=== PATIENT | female | born 1955 | race Caucasian/White ===

== ENCOUNTER 2017-10-16 14:38 | Emergency (ER) | payer OTHER ==
[~2017-10-16] VITALS: Ht 160 cm; Wt 142.4 kg
--- NOTE | 2017-10-16 15:12 | ED GENERAL ADULT ---
History of Present Illness General Chief Complaint: Chest Pain Stated Complaint: RAPID RESPONSE FROM [facility], CHEST PAINS Source: patient Exam Limitations: no limitations Vital Signs & Intake/Output Vital Signs & Intake/Output Vital Signs Date Time Temp Pulse Resp B/P B/P Pulse O2 O2 Flow FiO2 Mean Ox Delivery Rate 10/16 1950 97.5 87 18 109/59 94 10/16 1652 97.5 93 18 108/73 94 10/16 1459 98.1 91 18 160/64 100 Room Air Room Air Allergies Coded Allergies: MDX - Erythromycin (ERYTHROMYCIN) (Severe, SEVERE DIARRHEA 12/20/11) MDX - Morphine (MORPHINE) (PROJECTILE VOMITING 12/20/11) MDX - Ethanol (From ALCOHOL ETHYL) (HIVES, SWEATING, ITCHING 12/20/11) MDX - SULFA (sulfonamide) (SULFA (SULFONAMIDE)) (HIVES 12/20/11) Triage Note: 61 YO FEMALE TO TRIAGE ESCORTED BY RESIDENT FROM [facility] AFTER RAPID RESPONSE FOR C/O CHEST PAIN. PT REPORTS SHE WAS HAVING A ROUTINE MRI TODAY AND MENTIONED TO THE STAFF THAT SHE HAS BEEN HAVING CHEST PAIN SINCE YESTERDAY ON/OFF. DENIES SOB. PT TAKEN TO ER ROOM 16 ON ARRIVAL FOR EKG AND EVAL. Triage Nurses Notes Reviewed? yes Onset: Gradual Duration: day(s): Timing: constant HPI: 61-year-old female with no known past medical history presenting with chest pain since yesterday. 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 No worsening or alleviating factors, not exertional. No associated shortness of breath, diaphoresis, nausea, vomiting. Patient went for a routine mammogram today and had acute worsening of her chest pain prior to the exam, rapid response was called and patient was transported to the ED. No prior cardiac history. Last stress testing 6 years ago and was unremarkable to her knowledge. On arrival pt reports minimal pain. (Azucena Dinh) Past History Travel History Traveled to [place] past 21 day No Medical History Any Pertinent Medical History? none Surgical History Surgical History: none Psychosocial History What is your primary language [place] Family History Hx Contributory? No (Azucena Dinh) Review of Systems Review of Systems Constitutional: Reports: no symptoms. EENTM: Reports: no symptoms. Respiratory: Reports: no symptoms. Cardiovascular: Reports: chest pain. Denies: edema, orthopena, palpitations. GI: Reports: no symptoms. Genitourinary: Reports: no symptoms. Musculoskeletal: Reports: no symptoms. Skin: Reports: no symptoms. Neurological/Psychological: Reports: no symptoms. Hematologic/Endocrine: Reports: no symptoms. Immunologic/Allergic: Reports: no symptoms. (Azucena Dinh) Physical Exam Physical Exam General Appearance: well developed/nourished, no apparent distress, alert, awake , comfortable Head: atraumatic, normal appearance Eyes: Bilateral: normal appearance. Neck: normal inspection Respiratory: normal breath sounds, lungs clear, +chest wall TTP Cardiovascular: regular rate/rhythm, normal peripheral pulses Gastrointestinal: soft, non-tender Back: normal inspection Extremities: normal inspection Neurologic/Psych: awake, alert, oriented x 3, normal gait, normal mood/affect Skin: intact, normal color, warm/dry Core Measures ACS in differential dx? Yes CVA/TIA Diagnosis: No Sepsis Present: No Sepsis Focused Exam Completed? No (Azucena Dinh) Progress Differential Diagnoses I considered the following diagnoses in my evaluation of the patient: [ACS versus angina versus PE versus musculoskeletal strain, low concern for aortic dissection as pneumothorax] Plan of Care: Orders Procedure Date/time Status TROPONIN LEVEL 10/16 1756 Complete EKG 10/16 1756 Active Add-on Test (ER Only) 10/16 1717 Active D-DIMER 10/16 1514 Complete TROPONIN LEVEL 10/16 1512 Complete PHOSPHORUS 10/16 1512 Complete MAGNESIUM 10/16 1512 Complete COMPREHENSIVE METABOLIC PANEL 10/16 1512 Complete CBC WITHOUT DIFFERENTIAL 10/16 1512 Complete EKG 10/16 1442 Active Current Medications Sig/Stephie Start time Last Medication Dose Stop Time Status Admin Ketorolac 30 MG ONCE ONE 10/16 1730 CAN Tromethamine 10/16 1731 (Toradol) Laboratory Tests 10/16/17 1832: Troponin I < 0.01 10/16/17 1514: Anion Gap 12, Estimated GFR > 60, BUN/Creatinine Ratio 38.0 H, Glucose 150 H, Calcium 10.1, Phosphorus 4.1, Magnesium 1.4 L, Total Bilirubin 0.7, AST 51 H, ALT 82 H, Alkaline Phosphatase 82, Troponin I < 0.01, Total Protein 6.8, Albumin 4.2, Globulin 2.6, Albumin/Globulin Ratio 1.6, D-Dimer High Sensitivty < 200, CBC w Diff NO MAN DIFF REQ, RBC 5.72 H, MCV 76.8 L, MCH 24.4 L, MCHC 31.7 L, RDW 15.5 H, MPV 7.9, Gran % 58.9, Lymphocytes % 32.0, Monocytes % 8.2, Eosinophils % 0.6, Basophils % 0.3, Absolute Granulocytes 4.6, Absolute Lymphocytes 2.5, Absolute Monocytes 0.6, Absolute Eosinophils 0, Absolute Basophils 0 Initial EKG shows sinus rhythm with ST depressions in V3-V5. Initial troponin negative. Repeat troponin negative. Labs only remarkable for mild hypomagnesemia to 1.4, negative. Chest x-ray unremarkable. Patient reports mild pain relief after Toradol. Patient seen and evaluated by ED attending, and determined safe for outpatient cardiology evaluation in stress testing. Pt will f/u with Dr. oRbert. Given strict return precautions. Initial ED EKG: NSR, nonspecific ST T wave chg (ST depression in V3-V5) (Azucena Dinh) Departure Departure Disposition: HOME OR SELF CARE Condition: Stable Clinical Impression Primary Impression: Chest pain Referrals: Veronika Guardado DO (PCP/Family) Jakob [facility]Formerly [facility] Additional Instructions: Use ibuprofen as needed for pain. Follow-up with cardiology for reevaluation. Return to the emergency department for any new or worsening symptoms. Departure Forms: Customer Survey General Discharge Information (Azucena Dinh) PA/FLOWER POT PRESS OPERATOR Co-Sign Statement Statement: ED Attending supervision documentation- [] I saw and evaluated the patient. I have also reviewed all the pertinent lab results and diagnostic results. I agree with the findings and the plan of care as documented in the PA's/FLOWER POT PRESS OPERATOR's documentation. [x] I have reviewed the ED Record and agree with the PA's/FLOWER POT PRESS OPERATOR's documentation. [] Additions or exceptions (if any) to the PAs/FLOWER POT PRESS OPERATOR's note and plan are summarized below: [] (Jerrod MUÑOZ,Easton Kapadia) Critical Care Note Critical Care Note Critical Care Time: non-applicable (Azucena Dinh)
[2017-10-16 16:07] LABS: ABSOLUTE BASOPHIL COUNT 0 /CUMM (0.0-0.2); ABSOLUTE EOSINOPHIL COUNT 0 /CUMM (0.0-0.7); ABSOLUTE GRANULOCYTE CT 4.6 /CUMM (1.4-6.5); ABSOLUTE LYMPH COUNT 2.5 /CUMM (1.2-3.4); ABSOLUTE MONOCYTE COUNT 0.6 /CUMM (0.10-0.60); BASOPHIL % 0.3 % (0.0-2.0); EOSINOPHIL % 0.6 % (0-5); GRANULOCYTE % 58.9 % (42.2-75.2); HEMATOCRIT 43.9 % (37-47); MEAN CORPUSCULAR HGB 24.4 PG (27.0-31.0); MEAN CORPUSCULAR HGB CONC 31.7 G/DL (33.0-37.0); MEAN CORPUSCULAR VOLUME 76.8 FL (81.0-99.0); MEAN PLATELET VOLUME 7.9 FL (7.4-10.4); PLATELET COUNT 281 /CUMM (130-400); RBC DISTRIBUTION WIDTH 15.5 % (11.5-14.5); RED BLOOD CELL CT 5.72 /CUMM (4.20-5.40); WHITE BLOOD CELL COUNT 7.8 /CUMM (4.8-10.8)
--- NOTE | 2017-10-16 16:36 | RADIOLOGY REPORT ---
EXAMINATION: XR CHEST CLINICAL INFORMATION: Chest pain COMPARISON: Chest x-ray 08/07/2017 TECHNIQUE: 2 views of the chest were obtained. FINDINGS: There is asymmetric elevation of right diaphragm compared to left. Heart size is normal. The cardiac and mediastinal contours are normal. There is no pulmonary vascular congestion. The lungs are clear. There is no pleural effusion. There is multilevel degenerative spondylosis of dorsal spine with disc height narrowing and endplate spurring of the vertebrae. Compared to the prior exam there has been no change IMPRESSION: There is no acute abnormality of the chest.
[2017-10-16 19:50] VITALS: BP 109/59
== END 2017-10-16 20:26 ==
LOC: ERH 14:38
PROVIDERS: Physician Assistant
DX: R07.9 Chest pain, unspecified (principal)
CPT/HCPCS: 71046; 93005; 93010; 96372; J1885

== ENCOUNTER 2017-12-01 01:21 | Observation (INO) | payer OTHER ==
[~2017-12-01] VITALS: Ht 160 cm; Wt 145.6 kg
[~2017-12-01 01:21] MED LIST: APPLE CIDER VI300 MG PO; BEET ROOT PO; CALCIUM ASCORB500 MG PO; CALCIUM-MAG-ZI1 EACH PO; CINNAMON500 M1 PO; CLARITIN10 M1 PO; CYCLOBENZAPRINE10 M1 PO; FUROSEMIDE20 M1 PO; GARCINIA CAMBO1 EACH PO; L-LYSINE500 M3 PO; LOSARTAN POTASS50 M1 PO; MELATONIN10 M2 PO; METFORMIN HCL500 M3 PO; MILK THISTLE175 M1 PO; OMEPRAZOLE20 M3 PO; PAPAYA ENZYME1 EAC1 PO; PROBIOTIC1 EAC5 PO; SLEEP AID25 M2 PO; SPIRONOLACTONE25 M1 PO; SUPER B-50 COM1 EACH PO; TURMERIC500 M2 PO; VITAMIN A25000 UNIT PO; VITAMIN D2000 UNIT PO; ZINC50 M2 PO
[2017-12-01] MEDS ORDERED: PERCOCET 5-3251 EACH PO (16:23)
--- NOTE | 2017-12-01 20:57 | RADIOLOGY REPORT ---
EXAMINATION:\H\ \N\XR CHEST CLINICAL INFORMATION: Postop. Shortness of breath. Dyspnea. COMPARISON: Chest radiograph 10/16/2017. TECHNIQUE: Frontal view of the chest was obtained. FINDINGS: Unchanged mild elevation of the right hemidiaphragm with mildly low lung volumes. Mild bibasilar subsegmental atelectasis. Mild prominence of the background interstitium but no consolidation, edema, effusion, or pneumothorax. The cardiomediastinal silhouette appears normal. IMPRESSION: Low lung volumes with subsegmental atelectasis. No consolidation.
[2017-12-01 21:00] VITALS: BP 116/74
--- NOTE | 2017-12-01 21:15 | PN- General Surgery ---
Subjective Subjective: POST-OP NOTE Placed in observation status given her intractable pain, nausea, hypoxia. Taking ice chips. Out of bed to chair. Reports some dizziness. Not acutely shortly of breath. No chest pains. going home to get her cpap machine, which she has been apparently been using at home for about a week. Just voided 100mls. Objective Vital Signs and I&Os Intake & Output 12/01 1600 12/01 0800 12/01 0000 11/30 1600 11/30 0800 11/30 0000 Intake Total Output Total Balance Patient 321 lb Weight vitals: bp 116/74, pulse 90s, rr 12, o2sat 92% on 3L nasal cannula pacu flowsheet reviewed Physical Exam: General - alert & oriented. sleepy. no acute distress. Lungs - clear bilaterally. decreased breath sounds bilateral bases. Cardiac - s1s2. reg. Abdomen - obese. dressings c/d/i. no hematoma. no drains. Extremities - warm bilaterally. no c/c/e. calves soft and nontender b/l. ALPS in place. Current Medications: Current Medications Sig/Stephie Start time Last Medication Dose Route Stop Time Status Admin Acetaminophen 1,000 MG Q6 12/01 2359 AC IV 12/02 2358 Acetaminophen 1,000 MG .STK-MED ONE 12/02 903 DC IV 12/01 904 Cefazolin Sodium 2,000 MG ONCE 12/01 0000 NR IV 12/01 235 Cyclobenzaprine HCl 10 MG DAILY NEEDED PRN 12/02 1999 AC PO Dexamethasone 4 MG .STK-MED ONE 12/01 904 DC IM 12/01 905 Dextrose/Sodium 1,000 ML Q13H 12/01 2326 AC Chloride IV Docusate Sodium 100 MG BID 12/01 2100 AC PO Fentanyl Citrate 250 MCG .STK-MED ONE 12/02 903 DC IM 12/01 904 Heparin Sodium 5,000 UNIT Q8 12/01 2200 AC (Porcine) SC Hydromorphone HCl 2 MG .STK-MED ONE 12/02 903 DC IM 12/01 904 Insulin Human Regular 0 TIDAC/HS 12/01 2100 AC SC Ketorolac 30 MG .STK-MED ONE 12/02 903 DC Tromethamine IM 12/01 904 Loratadine 10 MG DAILY 12/02 899 AC PO Losartan Potassium 75 MG DAILY 12/02 899 AC PO Melatonin 10 MG AT BEDTIME 12/01 2100 DC PO Metformin HCl 1,000 MG 0800,1700 12/02 08 AC PO Midazolam HCl 2 MG .STK-MED ONE 12/02 903 DC IM 12/01 904 Omeprazole 20 MG DAILY AC 12/02 699 AC PO Ondansetron HCl 4 MG Q6P PRN 12/01 1944 AC IV Ondansetron HCl 4 MG .STK-MED ONE 12/01 904 DC IM 12/01 905 Oxycodone HCl 5 MG Q4-6 PRN PRN 12/02 1999 AC PO Oxycodone HCl 10 MG Q4-6 PRN PRN 12/02 1999 AC PO Spironolactone 25 MG DAILY 12/02 899 AC PO Assessment/Plan Assessment/Plan This 61 year old female with hx morbid obesity, hypertension, diabetes, gerd, giuliano (cpap started about a week ago), who is now POD#0 s/p robotic ventral hernia repair placed in observation status overnight for pain control, nausea, and hypoxia iv tylenol / oxycodone prn pain anti-emetics prn nausea IST / TRC eval to bring in her cpap from home tonight monitor o2. titrate off o2 as able home meds ordered f/u AM labs oob/ambulation with assistance accuchecks / ss coverage. metformin to resume tomorrow when tolerating diabetic diet observation status given likelihood of discharge to home tomorrow once pain controlled & off O2 will d/w Core Measures Venous Thromboembolism VTE Risk Factors Surgery No Mechanical VTE Prophylaxis d/t N/A MechProphylax Ordered No VTE Pharm Prophylaxis d/t NA PharmProphylax ordered
--- NOTE | 2017-12-01 21:21 | Admission Core Measures ---
Acute Coronary Syndrome (CM) ACS Core Measures Acute Coronary Syndrome Diagnosis No Congestive Heart Failure (NEW) CHF Core Measures Congestive Heart Failure Diagnosis No Cerebrovascular Accident CVA Core Measures CVA/TIA Diagnosis No Venous Thromboembolism VTE Core Gill (View Protocol) VTE Risk Factors Surgery No Mechanical VTE Prophylaxis d/t N/A MechProphylax Ordered No VTE Pharm Prophylaxis d/t NA PharmProphylax ordered Problem List As ranked by this Provider includes Assessment & Plan 1. S/P repair of ventral hernia 2. GERD (gastroesophageal reflux disease) 3. Sleep apnea 4. Hypertension 5. Morbid obesity 6. Diabetes 7. Ventral hernia HOME MEDS Home Med List Ascorbate Calcium (Calcium Ascorbate) 500 MG TABLET 1 TAB PO DAILY SUPPLEMENT (Reported) Bacillus Coagulans (Probiotic) (Unknown Strength) CAPSULE.DR (Unknown Dose) PO DAILY SUPPLEMENT (Reported) [BEET ROOT] 1 CAP PO DAILY SUPPLEMENT (Reported) Calcium Carb/D3/Magnesium/Zinc (Tdkavzm-Xkw-Ltmr-Vit D Tablet) (Unknown Strength ) TABLET (Unknown Dose) PO DAILY SUPPLEMENT (Reported) Cholecalciferol (Vitamin D3) (Vitamin D) 2,000 UNIT CAPSULE 1 CAP PO DAILY SUPPLEMENT (Reported) Chrom Joaquin/Brindal Amos (Garcinia Cambogia Tablet) (Unknown Strength) TABLET (Unknown Dose) PO DAILY SUPPLEMENT (Reported) Cider Vinegar (Apple Cider Vinegar) (Unknown Strength) TABLET (Unknown Dose) PO DAILY SUPPLEMENT (Reported) Cinnamon Bark (Cinnamon) 500 MG CAPSULE 2 CAP PO DAILY SUPPLEMENT (Reported) Cyclobenzaprine HCl 10 MG TABLET 1 TAB PO PRN MUSCLE SPASMS (Reported) Doxylamine Succinate (Sleep Aid) 25 MG TABLET 1 TAB PO QPM SLEEP (Reported) Furosemide (Unknown Strength) TABLET (Unknown Dose) PO PRN EDEMA (Reported) Loratadine (Claritin) 10 MG TABLET 1 TAB PO DAILY ALLERGIES (Reported) Losartan Potassium 50 MG TABLET 75 MG PO DAILY BP (Reported) Lysine HCl (L-Lysine) 500 MG TABLET 2 TAB PO DAILY SUPPLEMENT (Reported) Melatonin 10 MG TABLET 1 TAB PO DAILY SUPPLEMENT (Reported) Metformin HCl 500 MG TABLET 2 TAB PO BID DM (Reported) Milk Thistle Seed Extract (Milk Thistle) 175 MG CAPSULE 1 CAP PO DAILY SUPPLEMENT (Reported) Omeprazole 20 MG TABLET.DR 1 TAB PO DAILY GI (Reported) Oxycodone HCl/Acetaminophen (Percocet 5-325 MG Tablet) 5 MG-325 MG TABLET 1-2 TAB PO Q4-6 PRN PAIN Papaya (Papaya Enzyme) 1 EACH TABLET 1 TAB PO DAILY SUPPLEMENT (Reported) Spironolactone 25 MG TABLET 1 TAB PO DAILY DIURETIC (Reported) Turmeric Root Extract (Turmeric) (Unknown Strength) CAPSULE (Unknown Dose) PO DAILY SUPPLEMENT (Reported) Vitamin A (Unknown Strength) CAPSULE (Unknown Dose) PO DAILY SUPPLEMENT ( Reported) Vitamin B Complex (Super B-50 Complex) 1 EACH CAPSULE 1 CAP PO DAILY SUPPLEMENT (Reported) ZINC 50 MG TABLET 1 TAB PO DAILY SUPPLEMENT (Reported)
[2017-12-02 02:00] VITALS: BP 119/78
[2017-12-02 06:58] VITALS: BP 100/60
--- NOTE | 2017-12-02 07:24 | Patient Discharge Instructions ---
Discharge Instructions General Discharge Information You were seen/treated for: ventral hernia You had these procedures: robotic assisted ventral hernia repair with mesh Watch for these problems: fever>101, worsening pain despite pain meds, inability to tolerate food/drink, severe nausea/vomiting, inability to pass flatus/bm, signs of wound infection ( redness/drainage) Other wound care: May shower 48hr after surgery. Do not soak wounds- no tub baths/swimming. Diet Recommended Diet: Diabetic Activity Activity Self Limited: Yes Acute Coronary Syndrome Inclusion Criteria At DC or during hospital stay patient has or had the following: ACS DIAGNOSIS No Discharge Core Measures Meds if any: Prescribed or Continued at Discharge Meds if any: NOT Prescribed or Continued at Discharge Congestive Heart Failure Inclusion Criteria At DC or during hospital stay patient has or had the following: CHF DIAGNOSIS No Discharge Core Measures Meds if any: Prescribed or Continued at Discharge Meds if any: NOT Prescribed or Continued at Discharge Cerebrovascular accident Inclusion Criteria At DC or during hospital stay patient has or had the following: CVA/TIA Diagnosis No Discharge Core Measures Meds if any: Prescribed or Continued at Discharge Meds if any: NOT Prescribed or Continued at Discharge Venous thromboembolism Inclusion Criteria VTE Diagnosis No VTE Type NONE VTE Confirmed by (Test) NONE Discharge Core Measures - Per Current guidelines, there needs to be overlap - treatment for the first 5 days of Warfarin therapy. - If discharged on Warfarin prior to 5 days of - overlap therapy, the patient will need to be - assessed for post discharge needs including - *Post discharge parental anticoagulation - *Warfarin and/or parental anticoagulation education - *Follow up date to check INR post discharge At least 5 days overlap therapy as Inpatient No Meds if any: Prescribed or Continued at Discharge Note: Overlap Therapy is Warfarin and Anticoagulant Meds if any: NOT Prescribed or Continued at Discharge
[2017-12-02] MEDS ORDERED: DILAUDID2 M1 PO (07:38)
--- NOTE | 2017-12-02 07:40 | PN- General Surgery ---
Subjective Subjective: see student note Objective Vital Signs and I&Os see student note Assessment/Plan Assessment/Plan see student note Core Measures Venous Thromboembolism VTE Risk Factors Surgery No Mechanical VTE Prophylaxis d/t N/A MechProphylax Ordered No VTE Pharm Prophylaxis d/t NA PharmProphylax ordered
--- NOTE | 2017-12-02 09:39 | PN- Student ---
Martinez Villavicencio 12/02/17 0922: Subjective Subjective: Has abdominal pain, 7/10 with movement and 4/10 with rest. patient passed flatus , but no bowel movements yet. No nausea or vomiting. Only ambulate with assistance to the toilet. Making urine. Pain with deep inhalation. No chest pain , no racing heart beat, no shortness of breat, no calf pain. felt pain on lower lip which has improved since onset last night after paitent placed ice on it. Objective Objective: Vitals: Temp: 97.4 oral Pulse: 95 Respiratory rate: 20 Blood pressure: 100/60 Pulse ox: 92 room air Physical exam: General: No acute distress. alert and ortiented to time and place Mouth: [id number] lesion on lower lip Pulmonary: lungs clear bilaterally Cardio: s1 and s2, RRR Abdomen: softly distended, +bowel sounds, tender Wound site: steri strips were clean and intact. Extremities: calves soft and non tender bilaterally. Results Results: Laboratory Tests 12/02/17 0600: Magnesium Cancelled, CBC w Diff Cancelled, WBC Cancelled, RBC Cancelled, Hgb Cancelled, Hct Cancelled, MCV Cancelled, MCH Cancelled, MCHC Cancelled, RDW Cancelled, Plt Count Cancelled, MPV Cancelled Assessment/Plan Assessment: 61 year old female post op day 1 for robotic ventral hernia repair with lip wound likely due to intubation equipment. Had pain and was hypoxic last PM, but patient doing well this AM. Plan: Plan for discharge today Encourage Patient ambulation advance to diabetic diet Continue DVT prophylaxis Convert pain meds to PO dilaudid Continue home meds Eli Hou 12/02/17 1521: Assessment/Plan Plan: Pt seen with PA student, agree w above. feeling well, ok to dc if tolerates diet.
--- NOTE | 2017-12-02 12:28 | PN- General Surgery ---
Surgical Brief Attending Note Brief Attending Note: much better this AM, no nausea, SOB CP, VSS afeb, A&Ox3, small lower lip bruise, discussed recovery, DC this AM
[2017-12-02 13:54] VITALS: BP 98/55
[2017-12-02] MEDS ORDERED: ZOFRAN ODT4 M1 SL (13:56)
--- NOTE | 2017-12-06 17:43 | Operative Report ---
Operative/Inv Procedure Report Surgery Date: 12/01/17 Name of Procedure: Robotic laparoscopic mesh repair of incarcerated ventral incisional hernia Pre-Operative Diagnosis: Incarcerated ventral incisional hernia Post-Operative Diagnosis: Same Estimated Blood Loss: scant Surgeon/Vice President Digital Strategist: Joya MUÑOZ,Chinedu JOLLEY Anesthesia: general endotracheal tube Operative/Procedure Note Note: Patient was positioned supine on the table. After successful induction of general anesthesia the abdomen was clipped prepped and draped in usual sterile fashion. The abdominal skin is marked to guide where the mesh will lay, centered under the defect, and where the 3 8 mm robotic trochars will be positioned. Centering in the left anterior axillary line between the ribs and the iliac crest. After injection of local anesthetic at a spot in the mid to lateral left subcostal area, a horizontal 1 cm incision was made with a 15 blade. Using the plastic pointed-tipped translucent 8 mm with a metal robotic trocar and the camera inserted, the abdominal wall was traversed through this incision, watching on the screen, as the trocar passes through the layers, alternating colors, yellow fat white fascia red muscle, until the tip just seems to bhatia the inner thin peritoneal layer. At that point, I stop pushing and check if it's open by turning on the gas. If the belly insufflates then you know you can advance that large trocar into an empty space more directly without injuring the viscera. The gas was turned on to 15 mm. At this point you can see the umbilical ventral defect, with incarcerated omentum. Next the 2 remaining 8 mm robotic trochars are placed one in the mid abdomen axillary line as mentioned in one lower down above the iliac crest. The robot then is brought to the patient attached docked and targeted. Incarcerated omentum was reduced there was some fluid hemostasis was achieved then with this out of the way we could measure with a ruler. Then on the near side a peritoneal flap is started by scoring it measuring roughly 6 cm from the defect towards the left first scoring the peritoneum in a vertical line and then completing the incision with cautery keeping the flap thin paying particular care to not include the transversalis fascia or even the rectus sheath posterior leaf, and continuing that flap across to the right past the defect also on that side at least 6 cm, the defect was approximately 2. On the far side the flap was quite thin and little bit we left that for later to repair. Also of note during taking down the flap we noticed a second smaller midline defect just above the main 1, this was otherwise not visible until we took the flap down. There was some incarcerated fat in it as well which we pulled down. We then closed the defects with a running absorbable V lock suture. Chose a Velcro type of mesh not coated sized it to 12 cm marked the rough surface rolled up like a scroll and stuffed down one of the trochars centered it over the defect. The mesh laid nicely and flat we had snipped corners to prevent curling it fit well within the flap that we had created and then we closed the flap that vertical line on the near side with a running 2-0 V lock suture. Then we repaired the defect in the flap as mentioned earlier, incorporating some of the redundant sac. Next we checked for hemostasis and then undocked letting the gas escape pulling out the instruments and the trochars these 3 incisions were small there was no fascial closure needed and we then closed the skin with subcuticular 4-0 Monocryl, and then Mastisol, Steri-Strips and Band-Aids. Overall estimated blood loss was minimal, lap and sponge counts were correct, wound expectancy was clean, IV fluids crystalloid, complications none, patient tolerated the procedure well, did not significantly clement during extubation and was returned to the recovery room in satisfactory condition.
== END 2017-12-02 15:12 ==
LOC: STS 01:21 → PACUH 19:36 → ENRESERV 19:49 → 2NA 20:19 → ENPENDDIS 12-02 14:02 → ENTRNSPT 12-02 14:55 → EDTRNSPT 12-02 15:03 → EDTRNSPTSTS 12-02 15:03 → 2NA 12-02 15:12 → CMPTRNSPT 12-02 15:26
DX: K43.0 Incisional hernia with obstruction, without gangrene (principal); G89.18 Other acute postprocedural pain; R11.0 Nausea; I10 Essential (primary) hypertension; E66.01 Morbid (severe) obesity due to excess calories; E11.9 Type 2 diabetes mellitus without complications; Z79.84 Long term (current) use of oral hypoglycemic drugs
CPT/HCPCS: 49655; 64488; S2900; 1255; 1328; 1530; 1748; 6030; 71045; 82436; 96372; 96374; 96375; C1781; G0378; J0131; J0690; J1100; J1644; J1815; J1885; J2250; J2405; J2765; J3490; J7042